=== PATIENT | female | born 1990 | race Caucasian/White ===

== ENCOUNTER 2019-12-02 09:31 | Outpatient (CLI) | payer BC, MEDICAID ==
--- NOTE | 2019-12-02 11:39 | ULT ---
PELVIC ULTRASOUND: Transabdominal ultrasound of pelvis performed. INDICATION: IUD placement. FINDINGS: Uterus has a normal sonographic appearance. The endometrial stripe appears normal. There is echogen icity within the endometrium consistent with IUD placement within the endometrial cavity. There is a large right adnexal cyst measuring 6-7 cm. There is internal septation and echogenicity i ndicating mildly complex cystic lesion. This appears to arise from the right ovary. Color Doppler a nd spectral analysis shows blood flow to the right ovary. The left ovary is unremarkable. Color Doppler and spectral analysis demonstrate blood flow to the le ft ovary. IMPRESSION: 1. Large right adnexal complex cyst with internal septation and echogenicity. Correlate with serum HCG. Close followup is recommended to ensure resolution. 2. Echogenicity of the endometrial cavity indicates adequate placement of Intrauterine device. POS: [facility]
== END 2019-12-02 09:32 | disposition home or self-care (01) ==
LOC: BICULT 09:31
PROVIDERS: ATTEND Physician Assistant
DX: Z30.431 Encounter for routine checking of intrauterine contraceptive device (principal); E27.8 Other specified disorders of adrenal gland
CPT/HCPCS: 76856; 93976

== ENCOUNTER 2020-01-02 10:31 | Outpatient (CLI) | payer BC, MEDICAID ==
--- NOTE | 2020-01-02 13:16 | ULT ---
PELVIC ULTRASOUND: Transabdominal ultrasound of pelvis performed. INDICATION: Followup right ovarian cyst. COMPARISON: Correlation is made to pelvic ultrasound of 12/02/2019. That exam revealed a large right adnexal cyst measuring 6-7 cm. FINDINGS: Uterus is mildly prominent and heterogeneous measuring 9.8 x 5.0 x 5.0 cm. Endometrial stripe is within normal range. There is echogenicity in the endometrium consistent with IUD which appears adequately positioned. The right ovary is identified. There are normal-appearing follicles. Color Doppler and spectral yovani lysis demonstrates blood flow to the right ovary. The largest follicular cyst on the right is measur ed at approximately 1.0 to 1.8 cm today. The left ovary is identified. There is a left ovarian cyst measuring 2.0 to 2.5 cm. Color Doppler w ith spectral analysis demonstrates blood flow to the left ovary. No free fluid. IMPRESSION: Small bilateral ovarian cysts. The large cyst seen on prior exam in the right adnexa has resolved. POS: [facility]
== END 2020-01-02 10:32 | disposition home or self-care (01) ==
LOC: BICULT 10:31
PROVIDERS: ATTEND Physician Assistant
DX: N83.291 Other ovarian cyst, right side (principal)
CPT/HCPCS: 76856; 93976

== ENCOUNTER 2024-01-11 08:50 | Day surgery (SDC) | payer OTHER ==
[2024-01-11] MEDS ORDERED: Acetaminophen 500 MG TAB ONE (11:19)
[2024-01-11] MEDS: Acetaminophen 500 MG TAB PO SCH (11:20)
[2024-01-11] MEDS: diphenhydrAMINE 25 MG CAP PO SCH (11:20)
[2024-01-11] MEDS ORDERED: diphenhydrAMINE 25 MG CAP ONE (11:20)
[2024-01-11] MEDS: LORazepam 2 MG/ML SYR.(CARPUJECT) IVP SCH (12:38)
[2024-01-11 15:00] VITALS: BP 129/74; TEMP 98.1
== END 2024-01-11 15:15 | disposition home or self-care (01) ==
LOC: ONC/OP 08:50
PROVIDERS: ATTEND Internal Medicine
DX: D64.9 Anemia, unspecified (principal); D69.6 Thrombocytopenia, unspecified
CPT/HCPCS: 36430; 86850; 86900; 86901; J2060; P9016

== ENCOUNTER 2025-08-10 14:33 | Outpatient (CLI) | payer OTHER | END 2025-08-10 14:34 | disposition home or self-care (01) | LOC: SCSRAD 14:33 | PROVIDERS: ATTEND Student in an Organized Health Care Education/Training Program | DX: M25.542 Pain in joints of left hand (principal); M25.541 Pain in joints of right hand; M25.522 Pain in left elbow; M25.521 Pain in right elbow; M41.9 Scoliosis, unspecified | CPT/HCPCS: 72081 ==